=== PATIENT | female | born 1990 | race African-American/Black ===

== ENCOUNTER 2017-01-29 19:46 | Emergency (ER) | payer OTHER ==
[~2017-01-29] VITALS: Ht 170.2 cm; Wt 63.0 kg
[~2017-01-29 19:46] MED LIST: DIFLUCAN150 MG PO; TRINATE TABLET1 TAB PO
[2017-01-29 20:23] LABS: URINE BILIRUBIN NEGATIVE (Negative); URINE BLOOD NEGATIVE (Negative); URINE COLOR YELLOW; URINE GLUCOSE-RANDOM* NEGATIVE (Negative); URINE KETONES NEGATIVE (Negative); URINE LEUKOCYTES-REFLEX NEGATIVE (Negative); URINE PROTEIN (DIPSTICK) NEGATIVE (Negative); URINE SPECIFIC GRAVITY 1.015 (1.003-1.035); URINE UROBILINOGEN 0.2 E.U./dl (0.2-1.0)
[2017-01-29 20:49] LABS: ABSOLUTE NEUTROPHILS 2.1 thou/uL (1.4-8.2); BASOPHILS 1.2 % (0.0-2.0); EOSINOPHILS 1.1 % (0.0-3.0); HEMATOCRIT 32.3 % (37.0-47.0); HEMOGLOBIN 10.6 gm/dL (12.0-15.0); LYMPHOCYTES 44.8 % (24.0-44.0); MCH 27.2 pg (26.0-34.0); MCHC 32.7 g/dL (28.0-37.0); MCV 83.1 fL (80.0-100.0); MONOCYTES 8.2 % (1.0-8.0); PLATELET COUNT 320 thou/uL (150-400); POLYS 44.7 % (36.0-66.0); RBC 3.89 mil/uL (4.20-5.00); RDW 16.8 % (10.5-14.5); WBC 4.7 thou/uL (4.0-11.0)
[2017-01-29 20:52] LABS: MANUAL DIFF NO
[2017-01-29 20:57] LABS: CALCIUM 9.1 mg/dL (8.5-10.1); CREATININE 0.8 mg/dL (0.6-1.0)
[2017-01-29 21:03] LABS: TOTAL BILIRUBIN 0.3 mg/dL (<0.1-1.0); TOTAL PROTEIN 6.8 g/dL (6.4-8.2)
[2017-01-29 21:52] VITALS: BP 122/68
== END 2017-01-29 21:53 | disposition home or self-care (01) ==
LOC: ER 19:46
PROVIDERS: Emergency Medicine
DX: R10.84 Generalized abdominal pain (principal)

== ENCOUNTER 2017-05-20 11:19 | Emergency (ER) | payer OTHER ==
[~2017-05-20] VITALS: Ht 170.2 cm; Wt 59.9 kg
[2017-05-20] MEDS ORDERED: NORFLEX100 MG PO (12:22)
[2017-05-20] MEDS ORDERED: NAPROSYN500 MG PO (12:22)
== END 2017-05-20 12:30 | disposition home or self-care (01) ==
LOC: ER 11:19
DX: S09.90XA Unspecified injury of head, initial encounter (principal); R42 Dizziness and giddiness; V43.52XA Car driver injured in collision with other type car in traffic accident, initial encounter; Y93.89 Activity, other specified; Y92.89 Other specified places as the place of occurrence of the external cause; Y99.8 Other external cause status

== ENCOUNTER 2019-05-18 18:57 | Emergency (ER) | payer OTHER ==
[~2019-05-18] VITALS: Ht 170.2 cm; Wt 69.0 kg
[~2019-05-18 18:57] MED LIST changes: +NAPROSYN500 MG PO; +NORFLEX100 MG PO
[2019-05-18 19:29] LABS: URINE BILIRUBIN NEGATIVE (Negative); URINE BLOOD NEGATIVE (Negative); URINE CLARITY CLEAR; URINE COLOR YELLOW; URINE GLUCOSE-RANDOM* NEGATIVE (Negative); URINE KETONES 1+ (Negative); URINE NITRITE-REFLEX NEGATIVE (Negative); URINE PROTEIN (DIPSTICK) NEGATIVE (Negative); URINE SPECIFIC GRAVITY 1.025 (1.005-1.035); URINE UROBILINOGEN 0.2 E.U./dl (0.2-1.0)
[2019-05-18 19:31] LABS: URINE LEUKOCYTES-REFLEX 2+ (Negative)
[2019-05-18 19:42] LABS: CRYSTALS None Seen /LPF (None Seen); SQUAMOUS >10 Many /LPF (0-3)
[2019-05-18 19:43] LABS: CASTS None Seen /LPF (None Seen); MUCUS 4-6 Moderate strn/LPF (None Seen); URINE WBC-REFLEX >25 Many /HPF (0-5)
[2019-05-18 19:44] LABS: URINE RBC 0-2 Rare /HPF (0-2)
[2019-05-18] MEDS ORDERED: NAPROSYN500 MG PO (22:10)
[2019-05-18 22:23] VITALS: BP 105/68
== END 2019-05-18 22:24 | disposition home or self-care (01) ==
LOC: ER 18:57
PROVIDERS: Emergency Medicine
DX: O03.9 Complete or unspecified spontaneous abortion without complication (principal); M54.2 Cervicalgia

== ENCOUNTER 2021-06-07 21:18 | Emergency (ER) | payer OTHER ==
[~2021-06-07] VITALS: Ht 170.2 cm; Wt 69.4 kg
[2021-06-07 21:31] VITALS: BP 102/40
== END 2021-06-07 23:08 | disposition home or self-care (01) ==
LOC: ER 21:18
DX: R51.9 Headache, unspecified (principal); Z79.899 Other long term (current) drug therapy